=== PATIENT | female | born 1970 | race African-American/Black ===

== ENCOUNTER → 2017-06-02 | Outpatient (CLI) | payer BC | END | disposition home or self-care (01) | LOC: KCIC MAMMO 09:53 | DX: Z12.31 Encounter for screening mammogram for malignant neoplasm of breast (principal) | CPT/HCPCS: 77063; 77067 ==

== ENCOUNTER → 2020-08-09 | Outpatient (CLI) | payer BC ==
[2015-02-12 04:30] VITALS: BP 131/67
--- NOTE | 2020-08-09 15:31 | KCIC ---
Bilateral digital screening mammograms with 3-D tomosynthesis: Reason for examination: Routine screening. Comparison is made to previous studies dated 06/02/2017 and 07/20/2009. Bilateral mammograms in CC and oblique projections were obtained with 2-D imaging and 3-D tomosynthes is imaging on a Siemens Inspiration unit and reviewed on the workstation. Interpretation was made wit h the benefit of CAD. The skin and nipples show no abnormalities. No abnormal axillary lymph nodes are seen. The breast par enchyma shows scattered fatty and fibroglandular density. (Breast density: Category B.) There continu es to be a small 4.4 mm circumscribed nodule at the 3:00 position of the left breast 10 cm posterior to the nipple which is stable. There is also a faint 7.6 mm nodule in the central 3:00 position of th e left breast 10.5 cm from the nipple which is stable. There are no new dominant masses, suspicious c alcifications or architectural distortion. Impression: No evidence of malignancy. Recommend routine screening. BI-RAD Category 2: Benign. "Our facility is accredited by the [employer] Mammography Program." This patient's information has been entered into a reminder system for the patient to be notified wit h the results of her examination and a target date for the next mammogram. Electronically signed by: Lucinda Still MD (08/09/2020 3:28 PM) [email or web address]
== END ==
LOC: KCIC MAMMO 12:23
PROVIDERS: ATTEND Nurse Practitioner
DX: Z12.31 Encounter for screening mammogram for malignant neoplasm of breast (principal)
CPT/HCPCS: 77063; 77067